=== PATIENT | male | born 1970 | race Caucasian/White ===

== ENCOUNTER 2024-03-13 00:03 | Emergency (ER) | payer SELFPAY | END 2024-03-13 00:30 | disposition left against medical advice (07) | LOC: ANHED 03:16 | DX: K08.89 Other specified disorders of teeth and supporting structures (principal) | CPT/HCPCS: 99199 ==

== ENCOUNTER 2024-03-13 07:40 | Emergency (ER) | payer OTHER, SELFPAY ==
[2024-03-13 07:41] VITALS: BP 124/65; PULSE 59; RESP 16; TEMP 36.7; O2SAT 100
--- NOTE | 2024-03-13 09:13 | ED.DENTAL ---
HPI - Dental/Oral General Chief complaint: Dental/Oral Stated complaint: tooth ache Time Seen by Provider: 03/13/24 08:38 History of Present Illness HPI Narrative: This is a 53-year-old male presenting for a toothache. He states for last week or so he has been having intermittent pain in the left lower side of his jaw that radiated into his neck occasionally. He states he has poor dentition at baseline and is not able to see a dentist yet. He states he has had similar dental infections in the past and is requesting antibiotics as well as pain control. Denies any fever, chills, systemic symptoms of infection was otherwise in his normal state of health. No neck swelling or difficulty swallowing secretions. He is able tolerate p.o. intake and not nauseous or having any emesis. MD Complaint: tooth pain Teeth map: 1. Erythema without fluctuance, tenderness with palpation, no abscess 2. Cracked tooth with filling, chronic appearing, possible superimposed infection 3. Cracked tooth with filling, chronic appearing without evidence of infection Related Data Allergies Allergy/AdvReac Type Severity Reaction Status Date / Time No Known Allergies Allergy Verified 03/13/24 07:45 Review of Systems Review of Systems: As reviewed above in HPI Exam Narrative: GENERAL: [Well-appearing, well-nourished, and in no acute distress.] HEAD: [Normocephalic, atraumatic.] EYES: [PERRLA and EOMI.] ENT: Poor dentition throughout, left-sided lower jaw has cracked teeth with fillings in place, some erythema without fluctuance or palpable abscess formation. Tenderness of palpation and percussion. No pooling secretions, no posterior oropharyngeal swelling or lymphadenopathy noted NECK: Supple. CHEST: [Clear to auscultation. No respiratory distress.] HEART: [Regular rate and rhythm]. No murmur heard. [Normal peripheral pulses.] ABDOMEN: [Soft, nondistended], [nontender], [No rigidity or guarding] EXTREMITIES: Normal range of motion. [No edema.] SKIN: Warm, dry, no rash. NEURO: [No focal deficits]. Alert and oriented [x3.] PSYCH: [Normal mood and affect.] Course Vital Signs Vital signs: Vital Signs Temperature 36.7 C 03/13/24 07:41 Pulse Rate 59 L 03/13/24 07:41 Respiratory Rate 16 03/13/24 07:41 Blood Pressure 124/65 03/13/24 07:41 Pulse Oximetry 100 03/13/24 07:41 Temperature 36.7 C 03/13/24 07:41 Pulse Rate 59 L 03/13/24 07:41 Respiratory Rate 16 03/13/24 07:41 Blood Pressure 124/65 03/13/24 07:41 Pulse Oximetry 100 03/13/24 07:41 MDM - Dental/Oral MDM Narrative Medical decision making narrative: This is a 53 year old male presenting for a dental infection. He has evidence of very poor dentition at baseline with a superimposed bacterial infection in the left lower jaw without any lymphadenopathy or or pharyngeal involvement otherwise. Tolerating secretions and no nausea or vomiting. He appears well without a fever. I believe patient can be safely seen on outpatient basis with a dentist and will be provided him a script for Augmentin as well as as needed breakthrough pain control with [place] in addition to ibuprofen. Patient was appreciative this plan of care and was provided dental referral as well. Discharge Plan Discharge Clinical Impression: Toothache, Dental caries Patient Disposition: Home, Self-Care Condition: Stable Instructions: Antibiotic Form, Dental Abscess (ED), Toothache (ED) Prescriptions: New hydrocodone-acetaminophen 5-325 mg tablet 1 tablet PO Q8H PRN (Reason: pain) Qty: 10 0RF amoxicillin-pot clavulanate 875-125 mg tablet 1 tablet PO Q12H 7 Days Qty: 14 0RF ibuprofen 800 mg tablet 800 mg PO TID PRN (Reason: pain) Qty: 30 0RF Follow-up/Referrals: Michele Betancourt DMD [Physician] - Leopoldo Kenny III, [facility] [Physician] - Theron Suarez DMD [Physician] - Citlali,Carl Bobby DMD [Non-Staff] - UNKNOWN,DOCTOR [Primary Ca
== END 2024-03-13 09:28 | disposition home or self-care (01) ==
PROVIDERS: Emergency Provider Student in an Organized Health Care Education/Training Program
DX: K08.89 Other specified disorders of teeth and supporting structures (principal); K02.9 Dental caries, unspecified
CPT/HCPCS: 99283